=== PATIENT | male | born 1980 | race Caucasian/White ===

== ENCOUNTER 2016-09-21 01:03 | Emergency (ER) | payer SELFPAY ==
[~2016-09-21] VITALS: Ht 182.9 cm; Wt 91.0 kg
[~2016-09-21 01:03] MED LIST: ATENPOW10 PO; CLAR5TAB PO; CLON-352 PO; CLON0.2T PO; CODEINE PO; DIOV160T3 PO; DIVA250T8 OR; FIORCET PO; FLON0.053; HYDR12.56 PO; INDO50CA PO; LISI10 PO; LOVA40TA PO; ULTR50TA PO
[2016-09-21 01:06] VITALS: BP 182/94; PULSE 69; RESP 18; TEMP 98.4; O2SAT 98
[2016-09-21] MEDS ORDERED: SODIUM CHLOR 0.9% 1000 ML INJ 1,000 ML IV SCH (01:27)
[2016-09-21] MEDS ORDERED: SODIUM CHLORIDE 0.9% FLUSH 10 ML FLUSH IV FLUSH PRN (01:30)
[2016-09-21] MEDS ORDERED: ONDANSETRON HCL 4 MG/2 ML VIAL IVP ONE (01:30)
[2016-09-21] MEDS ORDERED: KETOROLAC TROMETHAMINE 30 MG/ML (IVP) VIAL IVP ONE (01:30)
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
[2016-09-21 01:51] VITALS: O2SAT 98
--- NOTE | 2016-09-21 02:08 | RADRPT ---
EXAM DATE/TIME: 09/21/2016 01:52 [facility] COMPARISON: No previous studies available for comparison. INDICATIONS : Right flank pain. ORAL CONTRAST: No oral contrast ingested. RADIATION DOSE: 8.44 CTDIvol (mGy) MEDICAL HISTORY : None SURGICAL HISTORY : None. ENCOUNTER: Initial ACUITY: 1 day PAIN SCALE: 7/10 LOCATION: Right flank TECHNIQUE: Volumetric scanning of the abdomen and pelvis was performed. Using automated exposure control and ad justment of the mA and/or kV according to patient size, radiation dose was kept as low as reasonably achievable to obtain optimal diagnostic quality images. FINDINGS: LOWER LUNGS: The visualized lower lungs are clear. LIVER: Homogeneous density without lesion. There is no dilation of the biliary tree. No calcified gallston es. SPLEEN: Normal size without lesion. PANCREAS: Within normal limits. KIDNEYS: Mild perinephric fluid around the right kidney. Mild hydronephrosis and hydroureter of the right kidn ey. 2 mm stone mid right ureter at the level the right L4 transverse process. Left kidney is unremar kable. Small stone lower pole right kidney ADRENAL GLANDS: Within normal limits. VASCULAR: There is no aortic aneurysm. BOWEL/MESENTERY: The stomach, small bowel, and colon demonstrate no acute abnormality. There is no free intraperitone al air or fluid. ABDOMINAL WALL: Within normal limits. RETROPERITONEUM: There is no lymphadenopathy. BLADDER: No wall thickening or mass. REPRODUCTIVE: Within normal limits. INGUINAL: There is no lymphadenopathy or hernia. MUSCULOSKELETAL: Within normal limits for patient age. CONCLUSION: Acute right renal ureteral stone was at the level of the right L4 transverse process measuring 2-3 mm . Claude Patton MD on September 21, 2016 at 2:05 Board Certified Radiologist. This report was verified electronically.
[2016-09-21] MEDS ORDERED: TAMSULOSIN HCL 0.4 MG CAP PO ONE (02:15)
[2016-09-21 02:31] LABS: APTT (PATIENT) 25.6 SEC (24.3-30.1); AUTOMATED NEUTROPHIL # 9.7 TH/MM3 (1.8-7.7); BASOPHIL % 0.3 % (0.0-2.0); EOSINOPHIL # 0.4 TH/MM3 (0-0.4); EOSINOPHIL % 2.6 % (0.0-4.0); HEMATOCRIT 40.9 % (39.0-51.0); HEMO FLAGS DIFF FINAL; LYMPH % 20.7 % (9.0-44.0); LYMPHOCYTE # 2.9 TH/MM3 (1.0-4.8); MEAN CELL VOLUME 86.9 FL (80.0-100.0); MEAN CORPUSCULAR HEMOGLOBIN 28.8 PG (27.0-34.0); MEAN CORPUSCULAR HGB CONC 33.2 % (32.0-36.0); MONO % 6.9 % (0.0-8.0); NEUT % 69.5 % (16.0-70.0); PLATELET COUNT 235 TH/MM3 (150-450); PROTHROMBIN TIME - PATIENT 10.6 SEC (9.8-11.6); RED CELL DISTRIBUTION WIDTH 13.8 % (11.6-17.2); WHITE BLOOD COUNT 13.9 TH/MM3 (4.0-11.0)
[2016-09-21 02:37] LABS: ALT (GPT) 28 U/L (12-78); ANION GAP 6 MEQ/L (5-15); AST (GOT) 17 U/L (15-37); BLOOD UREA NITROGEN 13 MG/DL (7-18); CHLORIDE 110 MEQ/L (98-107); GLOMERULAR FILTRATION RATE 64 ML/MIN (>89); POTASSIUM 3.6 MEQ/L (3.5-5.1); SODIUM (NA) 142 MEQ/L (136-145)
[2016-09-21 02:40] LABS: ALKALINE PHOSPHATASE 61 U/L (45-117); TOTAL BILIRUBIN ADULT 0.4 MG/DL (0.2-1.0)
[2016-09-21] MEDS ORDERED: SUBO2MIS SL (03:18)
[2016-09-21 03:26] LABS: BLOOD, URINE LARGE (NEG); COMMENT (UR) CULT NOT INDICATED; CULTURE IF INDICATED CULT NOT INDICATED; GLUCOSE,URINE NEG (NEG); KETONE, URINE NEG (NEG); MUCUS URINE FEW /lpf (OCC); NITRITE,URINE NEG (NEG)
[2016-09-21 03:27] LABS: URINE COLOR LIGHT-RED (YELLW/STRAW)
[2016-09-21] MEDS ORDERED: TAMS5CAP PO (03:54)
[2016-09-21] MEDS ORDERED: NAPR500 PO (03:54)
== END 2016-09-21 04:33 | disposition home or self-care (01) ==
LOC: NEPE 01:03
DX: N20.1 Calculus of ureter (principal); Z87.891 Personal history of nicotine dependence
CPT/HCPCS: 74176; 80053; 81001; 83690; 85025; 85610; 85730; 96374; 96375; 99285; J1885; J2405; J7030